=== PATIENT | female | born 1970 | race Caucasian/White ===

== ENCOUNTER 2020-02-09 07:01 | Day surgery (SDC) | payer SELFPAY ==
[~2020-02-09] VITALS: Ht 177.8 cm; Wt 73.5 kg
[~2020-02-09 07:01] MED LIST: ASPIRIN 8181 MG PO; MULTI VIT PO; VITAMIN C500 M5 PO; VITAMIN D H1000 UNIT PO
[2020-02-09] MEDS ORDERED: PERCOCET 5/321 COMBO PO (11:00)
[2020-02-09 11:30] VITALS: BP 137/63
== END 2020-02-09 11:55 | disposition home or self-care (01) | DRG 352 ==
LOC: ORM 07:01
PROVIDERS: ATTEND Surgery
PROC: 0YU54JZ Supplement Right Inguinal Region with Synthetic Substitute, Percutaneous Endoscopic Approach (ICD-10-PCS; principal; 2020-02-09)
DX: K40.90 Unilateral inguinal hernia, without obstruction or gangrene, not specified as recurrent (principal); Z11.59 Encounter for screening for other viral diseases
CPT/HCPCS: C1781; J0131; J1100; J2710